=== PATIENT | female | born 1990 | race American Indian/Alaskan Native ===

== ENCOUNTER 2018-01-29 00:36 | Emergency (ER) | payer SELFPAY ==
--- NOTE | 2018-01-29 08:25 | PCM.PN ---
- General Info Date of Service: 01/29/18 (72 hour hold) - Patient Data Vitals - Most Recent: Last Vital Signs Temp 36.6 C 01/29/18 03:09 Pulse 83 01/29/18 03:09 Resp 17 01/29/18 03:09 BP 117/79 01/29/18 03:09 Pulse Ox 98 01/29/18 03:09 Weight - Most Recent: 56.699 kg - Problem List & Annotations (1) SNOMED Code(s): 13522153 Code(s): Z34.90 - ENCNTR FOR SUPRVSN OF NORMAL , UNSP, UNSP TRIMESTER Status: Acute Current Visit: Yes Qualifiers: Weeks of gestation: 36 weeks Qualified Code(s): Z3A.36 - 36 weeks gestation of (2) complicated by maternal drug use, antepartum SNOMED Code(s): 612078398 Code(s): O99.320 - DRUG USE COMPLICATING , UNSPECIFIED TRIMESTER Status: Acute Current Visit: Yes (3) Bacterial vaginosis SNOMED Code(s): 698636345 Code(s): N76.0 - ACUTE VAGINITIS; B96.89 - OTH BACTERIAL AGENTS THE CAUSE OF DISEASES CLASSD ELSWHR Status: Acute Current Visit: No (4) Drug abuse during SNOMED Code(s): 396987965 Code(s): O99.320 - DRUG USE COMPLICATING , UNSPECIFIED TRIMESTER; F19.10 - OTHER PSYCHOACTIVE SUBSTANCE ABUSE, UNCOMPLICATED Status: Acute Current Visit: No (5) Insufficient care in third trimester SNOMED Code(s): 3883380954869, 0572115244249 Code(s): O09.33 - SUPRVSN OF PREG W INSUFFICIENT ANTENAT CARE, THIRD TRIMESTER Status: Acute Current Visit: No (6) Noncompliance SNOMED Code(s): 4119924 Code(s): Z91.19 - PATIENT'S NONCOMPLIANCE W OTH MEDICAL TREATMENT AND REGIMEN Status: Acute Current Visit: No (7) Positive urine drug screen SNOMED Code(s): 675062392, 042992747 Code(s): R82.5 - ELEVATED URINE LEVELS OF DRUG/MEDS/BIOL SUBST Status: Acute Current Visit: No (8) Social problem SNOMED Code(s): 696896186 Code(s): Z65.9 - PROBLEM RELATED TO UNSPECIFIED PSYCHOSOCIAL CIRCUMSTANCES Status: Acute Current Visit: No (9) UTI in SNOMED Code(s): 765835527 Code(s): O23.40 - UNSP INFECTION OF URINARY TRACT IN , UNSP TRIMESTER Status: Acute Current Visit: No Qualifiers: Trimester: third trimester Qualified Code(s): O23.43 - Unspecified infection of urinary tract in , third trimester (10) Yeast infection SNOMED Code(s): 5040007 Code(s): B37.9 - CANDIDIASIS, UNSPECIFIED Status: Acute Current Visit: No - Problem List Review Problem List Initiated/Reviewed/Updated: Yes - My Orders Last 24 Hours: My Active Orders 01/29/18 00:37 Restraint Initiate Non-VIOL/Non-SD [OM.PC] Stat Restraint Monitoring Non-VIOL/Non-SD [OM.PC] Daily 01/29/18 04:30 Restraint Continue N-V/N-SD [OM.PC] Routine 01/30/18 00:37 Restraint Monitoring Non-VIOL/Non-SD [OM.PC] Daily - Assessment Assessment:: 01/29/2018 Patient was brought back to the emergency room by the police department after leaving against a 72 hour hold in the OB dept. Decision was made to place her in the emergency dept for safety to her and others and better monitoring. Patient is noncompliant, angry, uncooperative, and states "we are violating her rights and she knows her rights" Orders for restraining in safe room placed Will continue to monitor FHTS per doppler every four hours career services representative aware of patient on 72 hr hold.
[2018-01-29] MEDS ORDERED: Calcium Carbonate 500 MG Tab.Chew PO PRN (08:29)
--- NOTE | 2018-01-29 08:40 | PCM.PN ---
- General Info Date of Service: 01/29/18 (72 hr hold) Functional Status: Reports: Pain Controlled - Review of Systems General: Reports: No Symptoms HEENT: Reports: No Symptoms Pulmonary: Reports: No Symptoms Cardiovascular: Reports: No Symptoms Gastrointestinal: Reports: No Symptoms Genitourinary: Reports: No Symptoms Musculoskeletal: Reports: No Symptoms Skin: Reports: No Symptoms Neurological: Reports: No Symptoms Psychiatric: Reports: No Symptoms - Patient Data Vitals - Most Recent: Last Vital Signs Temp 36.6 C 01/29/18 03:09 Pulse 83 01/29/18 03:09 Resp 17 01/29/18 03:09 BP 117/79 01/29/18 03:09 Pulse Ox 98 01/29/18 03:09 Weight - Most Recent: 56.699 kg Med Orders - Current: Current Medications Acetaminophen (Tylenol) 650 mg PO Q6H PRN PRN Reason: Pain Calcium Carbonate/Glycine (Tums) 500 mg PO Q2HR PRN PRN Reason: Indigestion Metronidazole (Metronidazole) 500 mg PO Q12H BHARATHI - Exam General: Alert, Oriented HEENT: Pupils Equal, Pupils Reactive, EOMI, Mucous Membr. Moist/[place] Neck: Supple Lungs: Clear to Auscultation, Normal Respiratory Effort Cardiovascular: Regular Rate, Regular Rhythm GI/Abdominal Exam: Normal Bowel Sounds, Soft, Non-Tender, No Organomegaly, No Distention, No Abnormal Bruit, No Mass, Pelvis Stable (Female) Exam: Normal External Exam, Normal Speculum Exam, Normal Bimanual Exam, Other (gravid) Back Exam: Normal Inspection, Full Range of Motion Extremities: Normal Inspection, Normal Range of Motion, Non-Tender, No Pedal Edema, Normal Capillary Refill Skin: Warm, Dry, Intact Neurological: No New Focal Deficit Psy/Mental Status: Alert, Normal Affect, Normal Mood - Problem List & Annotations (1) SNOMED Code(s): 12112316 Code(s): Z34.90 - ENCNTR FOR SUPRVSN OF NORMAL , UNSP, UNSP TRIMESTER Status: Acute Current Visit: Yes Qualifiers: Weeks of gestation: 36 weeks Qualified Code(s): Z3A.36 - 36 weeks gestation of (2) complicated by maternal drug use, antepartum SNOMED Code(s): 529282771 Code(s): O99.320 - DRUG USE COMPLICATING , UNSPECIFIED TRIMESTER Status: Acute Current Visit: Yes (3) Bacterial vaginosis SNOMED Code(s): 784232551 Code(s): N76.0 - ACUTE VAGINITIS; B96.89 - OTH BACTERIAL AGENTS THE CAUSE OF DISEASES CLASSD ELSWHR Status: Acute Current Visit: No (4) Drug abuse during SNOMED Code(s): 236244957 Code(s): O99.320 - DRUG USE COMPLICATING , UNSPECIFIED TRIMESTER; F19.10 - OTHER PSYCHOACTIVE SUBSTANCE ABUSE, UNCOMPLICATED Status: Acute Current Visit: No (5) Insufficient care in third trimester SNOMED Code(s): 4345712633748, 9201224125083 Code(s): O09.33 - SUPRVSN OF PREG W INSUFFICIENT ANTENAT CARE, THIRD TRIMESTER Status: Acute Current Visit: No (6) Noncompliance SNOMED Code(s): 2119518 Code(s): Z91.19 - PATIENT'S NONCOMPLIANCE W OTH MEDICAL TREATMENT AND REGIMEN Status: Acute Current Visit: No (7) Positive urine drug screen SNOMED Code(s): 850876784, 300586628 Code(s): R82.5 - ELEVATED URINE LEVELS OF DRUG/MEDS/BIOL SUBST Status: Acute Current Visit: No (8) Social problem SNOMED Code(s): 413070723 Code(s): Z65.9 - PROBLEM RELATED TO UNSPECIFIED PSYCHOSOCIAL CIRCUMSTANCES Status: Acute Current Visit: No (9) UTI in SNOMED Code(s): 502970330 Code(s): O23.40 - UNSP INFECTION OF URINARY TRACT IN , UNSP TRIMESTER Status: Acute Current Visit: No Qualifiers: Trimester: third trimester Qualified Code(s): O23.43 - Unspecified infection of urinary tract in , third trimester (10) Yeast infection SNOMED Code(s): 0435751 Code(s): B37.9 - CANDIDIASIS, UNSPECIFIED Status: Acute Current Visit: No - Problem List Review Problem List Initiated/Reviewed/Updated: Yes - My Orders Last 24 Hours: My Active Orders 01/29/18 00:37 Restraint Initiate Non-VIOL/Non-SD [OM.PC] Stat Restraint Monitoring Non-VIOL/Non-SD [OM.PC] Daily 01/29/18 04:30 Restraint Continue N-V/N-SD [OM.PC] Routine 01/29/18 08:26 Acetaminophen [Tylenol] 650 mg PO Q6H PRN 01/29/18 08:29 Vital Signs [RC] Q4H Calcium Carbonate [Tums] 500 mg PO Q2HR PRN Heart Monitor External [WOMSER] Routine 01/29/18 08:30 metroNIDAZOLE 500 mg PO Q12HR Restraint Continue N-V/N-SD [OM.PC] Routine 01/29/18 Breakfast Regular Diet [DIET] 01/30/18 00:37 Restraint Monitoring Non-VIOL/Non-SD [OM.PC] Daily - Assessment Assessment:: 01/29/2018 Patient was brought back to the emergency room by the police department after leaving against a 72 hour hold in the OB dept. Decision was made to place her in the emergency dept for safety to her and others and better monitoring. Patient is noncompliant, angry, uncooperative, and states "we are violating her rights and she knows her rights" Orders for restraining in safe room placed Will continue to monitor FHTS per doppler every four hours student services coordinator aware of patient on 72 hr hold. 01/29/2018 27 yo at approx 37 weeks gestation per [place] here on a 72 hour hold Postive UDS-methamphetamines and ecstasy Insufficient care Noncompliance Social Problems UTI in BV in Yeast in FHTs category one NST reactive Social service consulted - Plan Plan:: 01/29/2018 Continue patient in safe room in ER dept Social Service will go before forensic technician this am Continue to doppler FHTS every four hours Continue to monitor for signs and symptoms of withdrawal Continue to monitor for signs and symptoms of labor Continue one on one nursing Continue medications per orders Continue 72 hour hold policy
[2018-01-29] MEDS: metroNIDAZOLE 250 MG Tab PO SCH (08:58)
[2018-01-29] MEDS: Acetaminophen 325 MG Tab PO PRN (10:20)
[2018-01-29 12:22] VITALS: BP 113/61
== END 2018-01-29 13:50 | disposition other institution (70) ==
LOC: JP.ED 00:36
DX: O99.323 Drug use complicating pregnancy, third trimester (principal); O99.89 Other specified diseases and conditions complicating pregnancy, childbirth and the puerperium; O09.33 Supervision of pregnancy with insufficient antenatal care, third trimester; O23.43 Unspecified infection of urinary tract in pregnancy, third trimester; R82.5 Elevated urine levels of drugs, medicaments and biological substances; B96.89 Other specified bacterial agents as the cause of diseases classified elsewhere; N76.0 Acute vaginitis; B37.9 Candidiasis, unspecified; Z65.9 Problem related to unspecified psychosocial circumstances; Z91.89 Other specified personal risk factors, not elsewhere classified; Z3A.37 37 weeks gestation of pregnancy
CPT/HCPCS: 99284; A9270